=== PATIENT | female | born 1980 | race Caucasian/White ===

== ENCOUNTER 2016-08-06 13:05 | Emergency (ER) | payer OTHER ==
[~2016-08-06] VITALS: Ht 170.2 cm; Wt 73.8 kg
[~2016-08-06 13:05] MED LIST: ATIVAN1 MG PO; BACTRIM,SEPT1 TABLET PO; CLONIDINE HCL0.1 MG PO; CYMBALTA30 MG PO; DEPAKOTE500 MG PO; DIAZEPAM5 MG PO; DICYCLOMINE HCL20 MG PO; DIVALPROEX SOD500 MG PO; GABAPENTIN600 MG PO; KEFLEX500 MG PO; KEPPRA500 MG PO; LEVETIRACETAM500 MG PO; LYRICA150 MG PO; LYRICA75 MG PO; METHOCARBAMOL750 MG PO; MOTRIN800 MG PO; NAPROSYN500 MG PO; OLANZAPINE2.5 MG PO; OXYCODONE HCL10 MG PO; OXYCODONE HCL5 MG PO; OXYCODONE10 MG PO; PERCOCET 5/31 TABLET PO; RISPERIDONE1 MG PO; ROXICODONE5 MG PO; SEROQUEL12.5 MG PO; TORADOL10 MG PO; TRAMADOL HCL50 MG PO; TRILEPTAL150 MG PO; TRILEPTAL300 MG PO; TYLENOL PM1 CAPLET PO; VALIUM5 MG PO; VENTOLIN HFA18 GM IH
[2016-08-06 13:14] VITALS: BP 128/81
[2016-08-06 13:37] LABS: HEMATOCRIT 38.2 % (36.0-46.0); MCH 32.7 PG (29.0-34.0); MCHC 35.1 G/DL (30.0-36.0); MCV 93.2 FL (83-99); MEAN PLAT.VOLUME 8.7 uM^3 (9.5-12.4); PLATELET COUNT 256 K/uL (156-360); RBC DIS.WIDTH-CV 11.8 % (11.8-14.6); RBC DIS.WIDTH-SD 38.7 % (39-53); WHITE BLOOD COUNT 5.9 K/uL (4.1-10.2)
[2016-08-06 13:49] LABS: CHLORIDE 106 mEq/L (99-109); POTASSIUM 3.5 mEq/L (3.7-5.4); SODIUM 141 mEq/L (136-147)
[2016-08-06 13:51] LABS: GLUCOSE 83 mg/dL (70-99)
[2016-08-06 13:52] LABS: ANION GAP 10 MEQ/L (2-14)
[2016-08-06 13:54] LABS: GFR ESTIMATE (CALCULATED) > 59 mL/min/
[2016-08-06 13:55] LABS: UREA NITROGEN (BUN) 7 mg/dL (9-23)
== END 2016-08-06 16:59 | disposition home or self-care (01) ==
LOC: EME 13:05
DX: R56.9 Unspecified convulsions (principal); M25.532 Pain in left wrist; M25.561 Pain in right knee; M25.562 Pain in left knee; W18.30XA Fall on same level, unspecified, initial encounter; J45.909 Unspecified asthma, uncomplicated; F17.200 Nicotine dependence, unspecified, uncomplicated
CPT/HCPCS: 73090; 73110; 80048; 81003; 85027; 99281; 99283; J1885

== ENCOUNTER 2017-02-19 03:25 | Emergency (ER) | payer OTHER ==
[~2017-02-19] VITALS: Ht 170.2 cm; Wt 63.9 kg
[2017-02-19 04:41] VITALS: BP 108/74
[2017-02-19] MEDS ORDERED: KEPPRA750 MG PO (15:18)
== END 2017-02-19 04:43 ==
LOC: EME 03:25
DX: M25.512 Pain in left shoulder (principal); S60.022A Contusion of left index finger without damage to nail, initial encounter; Y04.0XXA Assault by unarmed brawl or fight, initial encounter; S62.636D Displaced fracture of distal phalanx of right little finger, subsequent encounter for fracture with routine healing; X58.XXXD Exposure to other specified factors, subsequent encounter; F17.200 Nicotine dependence, unspecified, uncomplicated
CPT/HCPCS: 73030; 73130; 73200; 99281; 99283

== ENCOUNTER 2017-02-19 10:51 | Emergency (ER) | payer OTHER ==
[~2017-02-19] VITALS: Ht 170.2 cm; Wt 67.9 kg
[2017-02-19 13:01] LABS: SERUM ETHYL ALCOHOL < 10 mg/dL
[2017-02-19 13:04] LABS: ADD MIUA? NO; BILIRUBIN NEGATIVE; BLOOD NEGATIVE; COLOR YELLOW ((YELLOW)); GLUCOSE (STRIP) NEGATIVE; KETONES NEGATIVE; LEUKOCYTES NEGATIVE; NITRITE NEGATIVE; PROTEIN (STRIP) NEGATIVE; SPECIFIC GRAVITY 1.015 (1.000-1.030); UROBILINOGEN 0.2 MG/DL (0.2-1.0)
[2017-02-19 13:14] LABS: AMPHETAMINE NEGATIVE (500 ng/mL); COCAINE PRESUMPTIVE POSITIVE (150 ng/mL); METHAMPHETAMINE NEGATIVE (500 ng/mL); OPIATES (MORPHINE) PRESUMPTIVE POSITIVE (100 ng/mL); PHENCYCLIDINE NEGATIVE (25 ng/mL); THC CANNABINOIDS NEGATIVE (50 ng/mL)
[2017-02-19 13:14] LABS: QUANTITATIVE HCG < 4.0 MIU/ML
[2017-02-19 13:15] LABS: ADD MEDTOX COMMENT Y; BARBITURATES NEGATIVE (200 ng/mL); BENZODIAZEPINES PRESUMPTIVE POSITIVE (150 ng/mL); INTERNAL CONTROLS VALID? YES; METHADONE NEGATIVE (200 ng/mL); OXYCODONE NEGATIVE (100 ng/mL); PROPOXYPHENE NEGATIVE (300 ng/mL); TRICYCLIC ANTIDEPRESSANTS PRESUMPTIVE POSITIVE (300 ng/mL)
[2017-02-19 13:34] LABS: BENZODIAZEPINES QUANT VALUE 0 NG/ML; BENZODIAZEPINES, URINE SCREEN Negative (200 ng/mL)
[2017-02-19 14:00] LABS: MCH 30.9 PG (29.0-34.0); MCHC 33.9 G/DL (30.0-36.0); MCV 91.1 FL (83-99); MEAN PLAT.VOLUME 8.9 uM^3 (9.5-12.4); NRBC (%) 0.3 /100 WBC (0-0); PLATELET COUNT 260 K/uL (156-360); RBC DIS.WIDTH-CV 12.8 % (11.8-14.6); RBC DIS.WIDTH-SD 41.8 % (39-53); RED BLOOD COUNT 3.95 M/uL (3.80-5.20); WHITE BLOOD COUNT 6.1 K/uL (4.1-10.2)
[2017-02-19] MEDS ORDERED: KEPPRA750 MG PO (15:18)
[2017-02-19 15:41] VITALS: BP 110/71
== END 2017-02-19 15:42 ==
LOC: EME → EDBD 10:51 → EME 10:51
PROVIDERS: Emergency Medicine
DX: G40.909 Epilepsy, unspecified, not intractable, without status epilepticus (principal); F19.10 Other psychoactive substance abuse, uncomplicated; F17.200 Nicotine dependence, unspecified, uncomplicated
CPT/HCPCS: 70450; 80053; 81003; 84702; 84999; 85027; 99281; 99284; G0480; J1953; J2060; J7030; J7050